=== PATIENT | male | born 1950 | race African-American/Black ===

== ENCOUNTER 2019-12-26 15:21 | Emergency (ER) | payer MEDICARE ==
[~2019-12-26] VITALS: Ht 185.4 cm; Wt 78.0 kg
--- NOTE | 2019-12-26 15:44 | Emergency Department Note ---
History of Present Illnes History of Present Illness Chief Complaint: Laceration History of Present Illness This is a 69 year old male, with a history of BPH and anxiety, who presents for evaluation of a laceration on the ventral aspect of the right foot. Patient states that he was breaking up some glass, to replace, when a piece of the glass fell down onto the ventral aspect of his right foot, resulting in a laceration. Laceration overlies the anterior aspect of the right ankle. Patient denies any numbness, tingling, or weakness of the right foot. His tetanus is not up-to-date. Historian: Patient Arrival Mode: Car Grades 1 Through 5 Teacher Required: No Onset (how long ago): hour(s) (2) Location: anterior aspect of right foot, at the ankle Quality: aching Radiation: Reports non-radiation Severity: mild Onset quality: sudden Duration (how long): hour(s) (2) Timing of current episode: constant Progression: unchanged Chronicity: new Context: Reports trauma/injury (see HPI) Relieving factors: none Exacerbating factors: none Associated symptoms: Reports denies other symptoms Treatments prior to arrival: none Past Medical/Family History Physician Review I have reviewed the patient's past medical and family history. Any updates have been documented here. Past Medical History Recent Fever: No Clinical Suspicion of Infectio: No New/Unexplained Change in Ment: No Past Medical History: Anxiety Other Medical History: BPH Past Surgical History: None Social History Smoking Cessation: Never Smoker Alcohol Use: None Any Illegal Drug Use: No TB Exposure/Symptoms: No Physically hurt or threatened: No Family History Family history of heart diseas: No Other Any Pre-Existing Lines (PICC,: No Is patient up to date on immun: No Review of Systems Review of Systems Constitutional: Denies chills, Denies fever EENTM: Reports no symptoms Cardiovascular: Denies chest pain, Denies palpitations Respiratory: Denies cough, Denies dyspnea Gastrointestinal: Denies nausea, Denies vomiting Genitourinary: Reports no symptoms Musculoskeletal: Reports no symptoms Integumentary: Reports other (laceration of right foot;) Neurological: Reports no symptoms; Denies numbness, Denies paresthesia, Denies tingling Review of other systems: All other systems negative Physical Exam Related Data Vital signs reviewed: Yes Physical Exam CONSTITUTIONAL Constitutional: Present well-developed, Present well-nourished; Absent distressed, Absent ill appearing HENT HENT: Present normocephalic, Present atraumatic, Present oropharynx clear/moist, Present nose normal HENT L/R: Present left ext ear normal, Present right ext ear normal EYES Eyes: Reports PERRL, Reports conjunctivae normal NECK Neck: Present ROM normal PULMONARY Pulmonary: Present effort normal, Present breath sounds normal CARDIOVASCULAR Cardiovascular: Present regular rhythm, Present heart sounds normal, Present capillary refill normal, Present normal rate GASTROINTESTINAL Abdominal: Present soft, Present nontender, Present bowel sounds normal GENITOURINARY Genitourinary: Present exam deferred SKIN Skin: Present warm, Present dry, Present other (2.5 cm subcutaneous laceration on the ventral aspect of the right foot, overlying the anterior ankle; no active bleeding;) MUSCULOSKELETAL Musculoskeletal: Present ROM normal; Absent tenderness, Absent swelling NEUROLOGICAL Neurological: Present alert, Present oriented x 3, Present no gross motor or sensory deficits; Absent sensory deficit, Absent weakness PSYCHOLOGICAL Psychological: Present mood/affect normal, Present judgement normal Procedures Laceration Laceration: Laceration 1 (while in) Site: lower extremity (ventral aspect of right foot) Side: right Size (cm): 2.5 Description: irregular Depth: simple, single layer Local anesthesia: lidocaine 1% Amount of anesthesia (mL): 8 Pre-repair: wound exposed, irrigated extensively, deep structures intact Skin layer closed with: other (Prolene) Size (cm): 3-0 Number of sutures: 6 Technique: simple, interrupted Assessment & Plan Medical Decision Making MDM - Keep the wound CLEAN and DRY for the next 24 hours, and then you may remove the dressing and gently wash with antibacterial soap and water, dry, and then apply [id number] antibiotic ointment generously to the wound, cover, and repeat twice daily thereafter. - You may not swim or sit in the hot tub, for the next 10 days. - You may use triple antibiotic ointment, bacitracin, or Neosporin to apply to the wound. - Observe closely for any signs of infection, including redness, swelling, tenderness, or drainage from the wound. This will require follow-up for antib iotic treatment. - Return in 10 days, for suture removal, or sooner with for any signs of infection. - Keep the right lower extremity elevated above the level of the heart, as much as possible for the next 24 hours, to help with pain and swelling. - You may take extra strength Tylenol 500 mg2 tablets every 4 hours as needed for pain. Assessment & Plan Final Impression: (1) Laceration of foot excluding toes (2) Elevated blood pressure reading (3) History of BPH Depart Disposition: HOME, SELF-CARE BRISA LÓPEZ MD Dec 26, 2019 15:44
[2019-12-26] MEDS ORDERED: DIPHTH/TETANUS/ACEL. PERTUSSIS 0.5 ML SYR IM ONE (16:00)
[2019-12-26] MEDS ORDERED: TETANUS/DIPHTHERIA TOX ADULT 0.5 ML SYR ONE (16:45)
[2019-12-26] MEDS ORDERED: NEOMYCIN/POLYMYX/BACITR OINT 0.9 GM PKT ONE (16:45)
[2019-12-27] MEDS ORDERED: BACITRACIN ZINC 15 GM OINT TOP SCH (09:00)
== END 2019-12-26 17:00 | disposition home or self-care (01) ==
LOC: FSED 16:48
DX: S91.311A Laceration without foreign body, right foot, initial encounter (principal); W25.XXXA Contact with sharp glass, initial encounter; Y92.008 Other place in unspecified non-institutional (private) residence as the place of occurrence of the external cause; F41.9 Anxiety disorder, unspecified
CPT/HCPCS: 90471; 90714; 99283

== ENCOUNTER 2020-01-04 08:22 | Emergency (ER) | payer MEDICARE ==
[~2020-01-04] VITALS: Ht 185.4 cm; Wt 78.0 kg
--- NOTE | 2020-01-04 08:50 | Emergency Department Note ---
History of Present Illnes History of Present Illness Chief Complaint: Skin Rash or Abscess History of Present Illness This is a 69 year old male Chief Complaint Comment wants stitches out. states had lac repair last tuesday ten days ago, pt never changed dressing or opened to air in last ten days. 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 Any updates have been documented here. Past Medical History Recent Fever: No Clinical Suspicion of Infectio: No New/Unexplained Change in Ment: No Past Medical History: Anxiety Other Medical History: BPH Past Surgical History: None Social History Smoking Cessation: Unknown if ever smoked Counseling Performed: No Alcohol Use: None Any Illegal Drug Use: No Physically hurt or threatened: No Other Any Pre-Existing Lines (PICC,: Yes Review of Systems Review of Systems Constitutional: Reports no symptoms EENTM: Reports no symptoms Cardiovascular: Reports no symptoms Respiratory: Reports no symptoms Gastrointestinal: Reports no symptoms Genitourinary: Reports no symptoms Musculoskeletal: Reports no symptoms Integumentary: Reports as per HPI, Reports other (Laceration to R doral foot 10 days ago s/p reapair) Neurological: Reports no symptoms Psychological: Reports no symptoms Endocrine: Reports no symptoms Hematological/Lymphatic: Reports no symptoms Physical Exam Related Data Allergies: Coded Allergies: No Known Allergies (Unverified , 01/04/20) Triage Vital Signs Vital Signs Date Time Temp Pulse Resp B/P (MAP) Pulse Ox O2 Delivery O2 Flow Rate FiO2 01/04/20 08:32 97.8 77 14 158/70 100 Room Air Vital signs reviewed: Yes Physical Exam CONSTITUTIONAL Constitutional: Present well-developed, Present well-nourished HENT HENT: Present normocephalic, Present atraumatic, Present oropharynx clear/moist, Present nose normal HENT L/R: Present left ext ear normal, Present right ext ear normal EYES Eyes: Reports PERRL, Reports conjunctivae normal NECK Neck: Present ROM normal PULMONARY Pulmonary: Present effort normal, Present breath sounds normal CARDIOVASCULAR Cardiovascular: Present regular rhythm, Present heart sounds normal, Present capillary refill normal, Present normal rate GASTROINTESTINAL Abdominal: Present soft, Present nontender, Present bowel sounds normal GENITOURINARY Genitourinary: Present exam deferred SKIN Skin: Present warm, Present dry, Present other (Healing laceration with sutures in place, no erythema or discharge, no bleeding. Wound edges aproximated with small gap) MUSCULOSKELETAL Musculoskeletal: Present ROM normal NEUROLOGICAL Neurological: Present alert, Present oriented x 3, Present no gross motor or sensory deficits PSYCHOLOGICAL Psychological: Present mood/affect normal, Present judgement normal Procedures Procedures Procedure: Suture removal to R dorsal foot. Laceration 3cm in length healing from bottom up, top layer healing by secondary intention. 6 4-0 prolene sutures removed. No signs of infection. Assessment & Plan Medical Decision Making MDM 69 y.o M presents for suture removal to R dorsal ft. Wound is healing well. No signs of infection. Top layer healing by secondary intention. Wound does somewhat come apart at the top with pressure. Sutures removed and steri strips placed. Instructed him that the rest of the wound would heal by secondary intention and that he is to keep the wound clean and re-bandage daily. He was told to follow up with his PCP in 1 week for wound re-check. Patient states agreement to plan and is appropriate for discharge. Assessment & Plan Final Impression: (1) Visit for suture removal Depart Disposition: HOME, SELF-CARE Last Vital Signs Date Time Temp Pulse Resp B/P (MAP) Pulse Ox O2 Delivery O2 Flow Rate FiO2 01/04/20 08:32 97.8 77 14 158/70 100 Room Air INGRID DELEON MD Jan 04, 2020 08:50
--- OUTSIDE RECORDS SUMMARY | 2020-01-04 10:57 | XMS REPORT | Continuity of Care Document ---
Author Author [facility] t Organization [facility] Address [facility] [place] [address] Phone Unavailable Care Team Providers Care Print Line Supervisor Name Role Phone RAMIRO THOMAS PCP Unavailable Payers Payer Name Policy Type Policy Number Effective Date Expiration Date Zuri Rodríguez Plus [facility] [id number] 2019 00:00:00 [facility] Problems Condition Name Condition Details Condition Category Status Onset Date Resolution Date Last Treatment Date Treating Clinician Comments Source Laceration of foot excluding toes Problem Active [facility] History of benign prostatic hyperplasia Problem Active [facility] Elevated blood pressure reading Problem Active [facility] Encounter for removal of sutures Problem Active [facility] Allergies, Adverse Reactions, Alerts This patient has no known allergies or adverse reactions. Social History Social Habit Start Date Stop Date Quantity Comments Source Sex Ass[birth year] At [birth year] 00[birth year]00 Male [facility] Medications This patient has no known medications. Vital Signs Vital Name Observation Time Observation Value Comments Source Weight 2020-01-04 08:32:00 172 [lb_av] [facility] BMI (Body Mass Index) 2020-01-04 08:32:00 22.7 kg/m2 [facility] Weight 2019-12-26 15:46:00 172 [lb_av] [facility] BMI (Body Mass Index) 2019-12-26 15:46:00 22.7 kg/m2 [facility] Procedures Procedure Date / Time Performed Performing Clinician Sourc e RPR S/N/AX/GEN/TRNK 2.5CM/< 2019-12-26 00:00:00 [facility] Plan of Care Planned Activity Planned Date Details Comments Source Instructions Skin Health [facility] Instructions Laceration [facility] Instructions Wound Care (General) [facility] Encounters Start Date/Time End Date/Time Encounter Type Admission Type Attendi [facility] Care Department Encounter ID Source 2020-01-04 08:42:00 2020-01-04 09:00:00 Departed Emergency Room [facility] [id number] [facility] dical [place] 2019-12-26 16:48:00 2019-12-26 17:00:00 Departed Emergency Room [facility] [id number] [facility] Results This patient has no known results.
== END 2020-01-04 09:00 | disposition home or self-care (01) ==
LOC: FSED 08:42
DX: Z48.02 Encounter for removal of sutures (principal)
CPT/HCPCS: 99283; S0630

== ENCOUNTER 2020-01-09 18:09 | Emergency (ER) | payer MEDICARE ==
[~2020-01-09] VITALS: Ht 185.4 cm; Wt 81.6 kg
--- NOTE | 2020-01-09 19:27 | Emergency Department Note ---
History of Present Illnes History of Present Illness Chief Complaint: Genitourinary History of Present Illness This is a 69 year old male Chief Complaint Comment SAID HE WENT TO PCP EARLIER TODAY, DIAGNOSED W/ UTI, GIVEN RX FOR ABX. HERE NOW WITH COMPLAINTS OF NOT BEING ABLE TO VOID SINCE 1500 . Historian: Patient Arrival Mode: Car Onset (how long ago): day(s) (2) Location: supra pubic Quality: dull Radiation: Denies non-radiation, Denies back, Denies neck, Denies extremity, Denies abdomen, Denies periumbilical, Denies flank, Denies proximal, Denies distal, Denies other Severity: moderate Onset quality: gradual Duration (how long): day(s) (2) Timing of current episode: constant Progression: worsening Chronicity: new Context: Denies recent illness, Denies recent surgery, Denies recent immobilization, Denies recent travel, Denies trauma/injury, Denies new medications, Denies hx of DVT/PE, Denies non-compliance w/ medications, Denies other Relieving factors: none Exacerbating factors: none Associated symptoms: Denies denies other symptoms, Denies confusion, Denies chest pain, Denies cough, Denies diaphoresis, Denies fever/chills, Denies headaches, Denies loss of appetite, Denies malaise, Denies nausea/vomiting, Denies rash, Denies seizure, Denies shortness of breath, Denies syncope, Denies weakness, Denies other Treatments prior to arrival: none Past Medical/Family History Physician Review I have reviewed the patient's past medical and family history. Any updates have been documented here. Past Medical History Recent Fever: No Clinical Suspicion of Infectio: No New/Unexplained Change in Ment: No Past Medical History: Anxiety, Hyperlipedemia Other Medical History: BPH Past Surgical History: None Social History Smoking Cessation: Never Smoker Alcohol Use: None Any Illegal Drug Use: No Other Any Pre-Existing Lines (PICC,: No Review of Systems Review of Systems Constitutional: Reports no symptoms EENTM: Reports no symptoms Cardiovascular: Reports no symptoms Respiratory: Reports no symptoms Gastrointestinal: Reports no symptoms Genitourinary: Reports as per HPI Musculoskeletal: Reports no symptoms Integumentary: Reports no symptoms Neurological: Reports no symptoms Psychological: Reports no symptoms Endocrine: Reports no symptoms Hematological/Lymphatic: Reports no symptoms Physical Exam Related Data Allergies: Coded Allergies: No Known Allergies (Unverified , 01/04/20) Triage Vital Signs Vital Signs Date Time Temp Pulse Resp B/P (MAP) Pulse Ox O2 Delivery O2 Flow Rate FiO2 01/09/20 18:31 98.0 115 16 191/118 100 Vital signs reviewed: Yes Physical Exam CONSTITUTIONAL Constitutional: Present well-developed, Present well-nourished HENT HENT: Present normocephalic, Present atraumatic, Present oropharynx clear/moist, Present nose normal HENT L/R: Present left ext ear normal, Present right ext ear normal EYES Eyes: Reports PERRL, Reports conjunctivae normal NECK Neck: Present ROM normal PULMONARY Pulmonary: Present effort normal, Present breath sounds normal CARDIOVASCULAR Cardiovascular: Present regular rhythm, Present heart sounds normal, Present capillary refill normal, Present normal rate GASTROINTESTINAL Abdominal: Present soft, Present nontender (supra pubic), Present bowel sounds normal, Present tender GENITOURINARY Genitourinary: Present exam deferred SKIN Skin: Present warm, Present dry MUSCULOSKELETAL Musculoskeletal: Present ROM normal NEUROLOGICAL Neurological: Present alert, Present oriented x 3, Present no gross motor or sensory deficits PSYCHOLOGICAL Psychological: Present mood/affect normal, Present judgement normal Results Laboratory Lab results reviewed: Yes Assessment & Plan Medical Decision Making MDM retention cystitis Reassessment Reassessment time: 19:25 Reassessment bettermFOLEY CATHETER WAS PLACED AND 700 ML URINE OUTPUT Assessment & Plan Final Impression: (1) Abdominal pain, suprapubic (2) Acute urinary retention (3) Acute cystitis Depart Disposition: HOME, SELF-CARE Last Vital Signs Date Time Temp Pulse Resp B/P (MAP) Pulse Ox O2 Delivery O2 Flow Rate FiO2 01/09/20 18:31 98.0 115 16 191/118 100 RHODA COOPER MD Jan 09, 2020 19:27
--- OUTSIDE RECORDS SUMMARY | 2020-01-13 15:45 | XMS REPORT | Continuity of Care Document ---
Author Author [facility] Organization [facility] Address [address] [place] [address] Phone Unavailable Care Team Providers Care Quill Layer Name Role Phone RAMIRO THOMAS PCP Unavailable Payers Payer Name Policy Type Policy Number Effective Date Expiration Date Zuri Rodríguez Plus [facility] [id number] 2019 00:00:00 [facility] Problems Condition Name Condition Details Condition Category Status Onset Date Resolution Date Last Treatment Date Treating Clinician Comments Source Laceration of foot excluding toes Problem Active [facility] History of benign prostatic hyperplasia Problem Active [facility] Elevated blood pressure reading Problem Active [facility] Encounter for removal of sutures Problem Active [facility] Suprapubic pain Problem Active [facility] Acute retention of urine Problem Active [facility] Acute cystitis Problem Active [facility] Allergies, Adverse Reactions, Alerts This patient has no known allergies or adverse reactions. Social History Social Habit Start Date Stop Date Quantity Comments Source Sex Assigned At 1950 00:00:00 1950 00[birth year]:00 Male [facility] Medications This patient has no known medications. Vital Signs Vital Name Observation Time Observation Value Comments Source Weight 2020-01-09 18:31:00 180 [lb_av] [facility] BMI (Body Mass Index) 2020-01-09 18:31:00 23.7 kg/m2 [facility] Weight 2020-01-04 08:32:00 172 [lb_av] [facility] BMI (Body Mass Index) 2020-01-04 08:32:00 22.7 kg/m2 [facility] Weight 2019-12-26 15:46:00 172 [lb_av] [facility] BMI (Body Mass Index) 2019-12-26 15:46:00 22.7 kg/m2 [facility] Procedures Procedure Date / Time Performed Performing Clinician Sourc e RPR S/N/AX/GEN/TRNK 2.5CM/< 2019-12-26 00:00:00 [facility] Plan of Care Planned Activity Planned Date Details Comments Source Instructions [facility] Catheter Care [facility] Instructions Urinary Tract Infection - Pediatric [facility] Instructions Urinary Tract Infection - Men [facility] Encounters Start Date/Time End Date/Time Encounter Type Admission Type Attendi [facility] Care Department Encounter ID Source 2020-01-09 18:44:00 2020-01-09 18:44:00 Registered Emergency Room [facility] [id number] [facility] 2020-01-04 08:42:00 2020-01-04 09:00:00 Departed Emergency Room [facility] [id number] [facility] 2019-12-26 16:48:00 2019-12-26 17:00:00 Departed Emergency Room [facility] [id number] [facility] Results This patient has no known results.
== END 2020-01-09 19:43 | disposition home or self-care (01) ==
LOC: FSED 18:44
DX: R33.9 Retention of urine, unspecified (principal); N30.00 Acute cystitis without hematuria; R10.30 Lower abdominal pain, unspecified; F41.9 Anxiety disorder, unspecified; E78.5 Hyperlipidemia, unspecified
CPT/HCPCS: 51700; 99283